=== PATIENT | female | born 1950 | race Caucasian/White ===

== ENCOUNTER 2016-10-16 11:19 | Day surgery (SDC) | payer OTHER ==
[~2016-10-16] VITALS: Ht 167.6 cm; Wt 63.5 kg
[~2016-10-16 11:19] MED LIST: LIDOCAINE 1% 1 ML SYRINGE. ID PRN
[2016-10-16] MEDS ORDERED: ALEN70TA3 PO (11:45)
[2016-10-16] MEDS ORDERED: MIDAZOLAM HCL/PF 2 MG/2 ML VIAL. ONE (12:00)
[2016-10-16] MEDS ORDERED: LIDOCAINE 2% PF Vial for OR 5 ML VIAL. ONE (12:00)
[2016-10-16] MEDS ORDERED: PROPOFOL 20 ML IV ONE (12:00)
[2016-10-16] MEDS ORDERED: DEXAMETHASONE SOD PHOS 20 MG/5 ML VIAL. ONE (12:00)
[2016-10-16] MEDS ORDERED: fentaNYL PF VIAL 100 MCG/2 ML VIAL ONE (12:00)
[2016-10-16] MEDS ORDERED: ONDANSETRON PF 4 MG/2 ML VIAL. ONE (12:04)
[2016-10-16] MEDS ORDERED: BUPIVACAINE 0.5% 50 ML VIAL. ONE (12:11)
[2016-10-16] MEDS ORDERED: IV RINGERS,LACTATED 1000ML 1,000 ML IV ONE (12:15)
--- NOTE | 2016-10-16 13:07 | DISCH ---
DISCHARGE INSTRUCTIONS Condition on Discharge Condition on Discharge: Stable Activity After Discharge Activity Instructions for Disc: Other, see below Other activity instructions: advance activity as tolerated Weight Bearing Status after Di: As tolerated Diet after Discharge Diet after Discharge: Regular Wound Incision Care Wound/Incision Care: Ice to area for comfort, Change dressing Other wound/incision instructi: remove dressing 2 days may then shower Contacting the DRMayank after DC Call your doctor for: Concerns you may have Follow-Up Follow up with: Gene 10 days CARL DALE MD Oct 16, 2016 13:07
[2016-10-16] MEDS ORDERED: HYDR-965 PO (13:08)
[2016-10-16] MEDS ORDERED: SEVOFLURANE 31 TO 60 MINUTES. IH ONE (13:41)
[2016-10-16] MEDS ORDERED: ONDANSETRON PF 4 MG/2 ML VIAL. IV PRN (13:45)
[2016-10-16] MEDS ORDERED: MORPHINE SULFATE 2 MG/ML DISP.SYRIN. IV PRN (13:45)
[2016-10-16] MEDS ORDERED: fentaNYL PF VIAL 100 MCG/2 ML VIAL IV PRN ×2 (13:45)
[2016-10-16] MEDS ORDERED: HYDROmorphone 2 MG/ML VIAL IVP PRN (13:45)
[2016-10-16] MEDS ORDERED: LIDOCAINE 1% 1 ML SYRINGE. ID PRN (14:00)
[2016-10-16] MEDS ORDERED: HYDROcodone/APAP 7.5/325MG 1 TAB TABLET PO PRN (14:00)
[2016-10-16 15:38] VITALS: BP 170/91
--- NOTE | 2016-10-16 15:50 | PDOC4 ---
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 She also has somewhat of a valgus orientation and suspicion of some pre-existing degenerative change in the lateral compartment. She has been fitted for a lateral care administrative tech brace but continues to have mechanical symptoms in the lateral compartment MRI had shown lateral meniscus tear and she presents for further evaluation and treatment for arthroscopy partial lateral meniscectomy. I went over with her that this is a reasonable treatment for the mechanical issues associated with the meniscus tear but cannot undo any of the degenerative changes present and if she continues to have significant pain and symptoms from the degenerative issues unresponsive to the brace we may need to consider lateral unicondylar knee replacement. All her questions were answered consent was obtained and she agrees to proceed with operative evaluation and treatment. Operative note: Patient was identified procedure verified after adequate amounts of general endotracheal anesthesia were administered patient was placed in the supine position on the operating table all bony prominences were well- padded up thigh tourniquet and side post was placed and the right lower extremity was prepped and draped in standard sterile fashion. After timeout was performed patient procedure identified and verified right lower extremity was exsanguinated by Esmarch bandage tourniquet inflated to 300 mmHg and a lateral portal was placed a medial portal was placed under spinal needle localization and the knee joint was systematically examined. She was found to have partial- thickness chondromalacia and chondral fraying on the medial facet of the patella which was trimmed back to stable tissue using arthroscopic shaver. There were no loose bodies in the gutters or suprapatellar pouch although she had significant synovitis throughout. The medial meniscus was probed and found to be intact medial compartment cartilage surfaces likewise intact. Anterior cruciate and posterior cruciate ligaments were probed and found to be intact as well. She had a large displaceable tear of the body and posterior horn primarily of the lateral meniscus and significant fraying in the anterior horn. The lateral meniscus was resected back to stable tissue at the apex of the tear in the body and posterior horn and was radiused into the posterior root and anterior horn to avoid any further stress riser. Any cartilage fragments were removed and the meniscus probed to verify adequate resection. The knee was again toward to ensure no loose cartilage bodies were present and was drained of arthroscopic fluid. Portals were closed with nylon suture. The fat pad and joint was injected with proximally 40 mL of half percent plain Marcaine sterile dressings were applied. Toes were warm and pink following deflation of the tourniquet patient was extubated transferred postop holding in stable condition having tolerated the procedure well CARL DALE MD Oct 16, 2016 15:50
[2016-10-17] MEDS ORDERED: IV RINGERS,LACTATED 1000ML 1,000 ML IV SCH (06:00)
[2016-10-19] MEDS ORDERED: IV RINGERS,LACTATED 1000ML 1,000 ML IV SCH (06:00)
== END 2016-10-16 15:46 | disposition home or self-care (01) ==
LOC: SURG 11:19
PROVIDERS: ATTEND Orthopaedic Surgery
DX: S83.281A Other tear of lateral meniscus, current injury, right knee, initial encounter (principal); M94.261 Chondromalacia, right knee; X58.XXXA Exposure to other specified factors, initial encounter; Y93.9 Activity, unspecified; Y92.9 Unspecified place or not applicable; Y99.9 Unspecified external cause status; E78.00 Pure hypercholesterolemia, unspecified; M19.90 Unspecified osteoarthritis, unspecified site; Z87.39 Personal history of other diseases of the musculoskeletal system and connective tissue
CPT/HCPCS: 29881; J0690; J1100; J2001; J2250; J2405; J2704; J3010; J3490